=== PATIENT | male | born 1950 | race Hispanic/Latino ===

== ENCOUNTER 2016-07-11 14:33 | Inpatient (IN) | payer MEDICARE ==
[2016-07-11 14:57] VITALS: BMI 27.8
[2016-07-11] MEDS ORDERED: Vancomycin 1gm in NS 250ml 250 ML IVPB STA (15:39)
--- NOTE | 2016-07-11 15:44 | ED PDOC ---
Arrival/HPI <Rachel Brown - Last Filed: 07/11/16 17:56> - General Historian: Patient <Elias Dahl P - Last Filed: 07/11/16 20:14> - General Chief Complaint: Lower Extremity Problem/Injury Time Seen by Provider: 07/11/16 15:38 - History of Present Illness Narrative History of Present Illness (Text): 07/11/16 15:39 This 65 yo male with pmh diabetic foot, presents to this ED c/o left great toe is infected with redness on foot and lower leg x 3 weeks. Patient stated he has been soaking toe in an apple cider solution. Patient denies groin pain, fever, sob, cp, abdominal pain, urinary symptoms, mckeon, or dizziness. Dr. Dallas Crawford, PMD (DahlAyahchaim Chilel) Past Medical History - Provider Review Nursing Documentation Reviewed: Yes - Infectious Disease Hx of Infectious Diseases: None - Psychiatric Hx Substance Use: No - Surgical History Hx Cholecystectomy: Yes - Anesthesia Hx Anesthesia Reactions: No Hx Malignant Hyperthermia: No <Dahl,Ayahchaim Chilel - Last Filed: 07/11/16 20:14> Family/Social History - Physician Review Nursing Documentation Reviewed: Yes Family/Social History: No Known Family HX Smoking Status: Never Smoked Hx Alcohol Use: Yes Frequency of alcohol use: Socially Hx Substance Use: No <Dahl,Ayahchaim Chilel - Last Filed: 07/11/16 20:14> Allergies/Home Meds <Rachel Brown - Last Filed: 07/11/16 17:56> <Ayah Dahlchaim Chilel - Last Filed: 07/11/16 20:14> Allergies/Adverse Reactions: Allergies No Known Allergies Allergy (Verified 07/11/16 15:00) Home Medications: Home Meds Medication Instructions Recorded Confirmed No Known Home Med 07/11/16 07/11/16 Review of Systems - Review of Systems Constitutional: Fevers (He was found to have fever in ED). absent: Fatigue, Weight Change Eyes: Normal ENT: Normal Respiratory: Normal. absent: SOB, Cough Cardiovascular: Normal. absent: Chest Pain, Palpitations Gastrointestinal: Normal. absent: Abdominal Pain, Nausea, Vomiting Genitourinary Male: Normal. absent: Dysuria, Frequency, Hematuria Musculoskeletal: Normal Skin: Skin Lesions, Abscess, Ulcer, Cellulitis Neurological: Normal. absent: Headache, Dizziness, Focal Weakness Endocrine: Normal Hemo/Lymphatic: Normal Psychiatric: Normal <DahlAyah clearychaim P - Last Filed: 07/11/16 20:14> Physical Exam Temperature: Afebrile Blood Pressure: Normal Pulse: Regular Respiratory Rate: Normal Appearance: Positive for: Well-Appearing, Non-Toxic, Comfortable Pain Distress: None Mental Status: Positive for: Alert and Oriented X 3 - Systems Exam Head: Present: Atraumatic, Normocephalic Pupils: Present: PERRL Extroacular Muscles: Present: EOMI Conjunctiva: Present: Normal Mouth: Present: Moist Mucous Membranes Pharnyx: Present: Normal. No: ERYTHEMA, EXUDATE, TONSILS ENLARGED Neck: Present: Normal Range of Motion, Trachea Midline. No: Meningeal Signs, MIDLINE TENDERNESS, Paraspinal Tenderness Respiratory/Chest: Present: Clear to Auscultation, Good Air Exchange. No: Respiratory Distress, Accessory Muscle Use, Wheezes, Retracting, Rhonchi Cardiovascular: Present: Regular Rate and Rhythm, Normal S1, S2. No: Murmurs Abdomen: Present: Normal Bowel Sounds. No: Tenderness, Distention, Peritoneal Signs Back: Present: Normal Inspection. No: CVA Tenderness, Midline Tenderness, Paraspinal Tenderness Upper Extremity: Present: Normal Inspection, Normal ROM, NORMAL PULSES, Neurovascularly Intact, Capillary Refill < 2s. No: Cyanosis, Edema Lower Extremity: Present: NORMAL PULSES, Normal ROM, Erythema ((+) left great toe, left dorsal foot, and distal left anterior lower leg), Temperature Abnormalties, Neurovascularly Intact, Capillary Refill < 2 s (all toes except left great toe). No: Edema, CALF TENDERNESS Neurological: Present: GCS=15, CN II-XII Intact, Speech Normal Skin: Present: Warm, Dry, Normal Color, Other ((+) left dorsal 1st toe ulcer with ecchymositic changes, and surrounding erythema, trace discharge). No: Rashes Psychiatric: Present: Alert, Oriented x 3 <Elias Dahl P - Last Filed: 07/11/16 20:14> Vital Signs Temp Pulse Resp BP Pulse Ox 07/11/16 19:00 90 15 127/80 97 07/11/16 18:12 88 16 118/62 96 07/11/16 18:00 99.3 F 07/11/16 16:40 92 H 18 128/80 97 07/11/16 16:00 102.6 F H 07/11/16 14:34 100.1 F H 115 H 18 125/74 99 Medical Decision Making <Rachel Brown - Last Filed: 07/11/16 17:56> Re-evaluation Time: 19:20 Reassessment Condition: Re-examined, Improved - Lab Interpretations I have reviewed the lab results: Yes Interpretation: Abnormal lab values <Elias Dahl - Last Filed: 07/11/16 20:14> ED Course and Treatment: 07/11/16 17:56 Patient seen with JOSE Dahl. Patient with significant toe/foot infection with fever and leukocytosis. He is hemodynamically stable and does need icu care. Labs also show new onset DM. He will need to be admitted for iv antibiotics and podiatry consult. Case discussed with Dr. Crawford for admission on his service. (Rachel Brown) 07/11/16 19:20 (Elias Dahl) - Lab Interpretations Lab Results: 07/11/16 16:10 07/11/16 16:10 Lab Results 07/11/16 16:30: Urine Color Yellow, Urine Appearance Sl cloudy, Urine pH 6.0, Ur Specific [place] 1.025, Urine Protein 100 H, Urine Glucose (UA) 250 H, Urine Ketones >=80, Urine Blood Small H, Urine Nitrate Negative, Urine Bilirubin Small H, Urine Urobilinogen 0.2, Ur Leukocyte Esterase Negative, Urine RBC 0 - 2 , Urine WBC 0 - 2, Ur Epithelial Cells 0 - 2, Urine Bacteria Few 07/11/16 16:10: WBC 17.2 H, RBC 4.59, Hgb 15.4, Hct 42.9, MCV 93.5, MCH 33.6, MCHC 35.9, RDW 13.2, Plt Count 132, MPV 10.5, Gran % 87.9 H, Lymph % (Auto) 3.3 L, [place] % (Auto) 8.7 H, Eos % (Auto) 0.0 L, Baso % (Auto) 0.1, Gran # 15.10 H, Lymph # 0.6 L, [place] # 1.5 H, Eos # 0.0, Baso # 0.01, PT 11.8, INR 1.09 H, APTT 32.5 H, pO2 24 L, VBG pH 7.37, VBG pCO2 42.0, VBG HCO3 24.3, VBG Total CO2 25.6 , VBG O2 Sat (Calc) 46.0, VBG Base Excess -1.1 L, VBG Potassium 4.0, Glucose 327 H, Lactate 2.1, FiO2 21.0, Sodium 130.0 L, Potassium 4.1, Chloride 94.0 L, Carbon Dioxide 25, Anion Gap 18, BUN 24 H, Creatinine 1.1, Est GFR ( Amer ) > 60, Est GFR (Non-Af Amer) > 60, Random Glucose 314 H*, Calcium 9.1, Phosphorus 2.4 L, Magnesium 2.3 H, Total Bilirubin 1.8 H, AST 38, ALT 38, Alkaline Phosphatase 113, Total Protein 7.9, Albumin 3.9, Globulin 4.0, Albumin/ Globulin Ratio 1.0 L, Venous Blood Potassium 4.0 - RAD Interpretation Radiology Orders: 07/11/16 15:39 CHEST PORTABLE [RAD] Stat 07/11/16 15:41 FOOT LEFT 3 VIEWS ROUTINE [RAD] Stat 07/11/16 15:42 DUPLEX LOWER EXTRM VEIN LEFT [US] Stat - Medication Orders Current Medication Orders: Discontinued Medications Acetaminophen (Tylenol 325mg Tab) 650 mg PO STAT STA Stop: 07/11/16 15:45 Last Admin: 07/11/16 16:29 Dose: 650 MG Vancomycin HCl (Vancomycin 1gm) 250 mls @ 167 mls/hr IVPB STAT STA PRN Reason: Protocol Stop: 07/11/16 17:08 Last Admin: 07/11/16 16:29 Dose: 167 MLS/HR eMAR Start Stop Document 07/11/16 16:29 SF (Rec: 07/11/16 16:29 SF [id number]) Intravenous Solution Start Date 07/11/16 Start Time 16:29 End Date 07/11/16 End time 17:59 Total Infusion Time 90 Sodium Chloride (Sodium Chloride 0.9%) 1,000 mls @ 999 mls/hr IV .Q1H1M STA Stop: 07/11/16 16:47 Last Admin: 07/11/16 16:30 Dose: 999 MLS/HR eMAR Start Stop Document 07/11/16 16:30 SF (Rec: 07/11/16 16:30 SF [id number]) Intravenous Solution Start Date 07/11/16 Start Time 16:30 End Date 07/11/16 End time 17:31 Total Infusion Time 61 Piperacillin Sod/Tazobactam Sod (Zosyn 3.375 In Ns 100ml) 100 mls @ 200 mls/hr IVPB STAT STA PRN Reason: Protocol Stop: 07/11/16 18:24 Last Admin: 07/11/16 18:29 Dose: 200 MLS/HR eMAR Start Stop Document 07/11/16 18:29 SF (Rec: 07/11/16 18:29 SF [id number]) Intravenous Solution Start Date 07/11/16 Start Time 18:29 End Date 07/11/16 End time 18:59 Total Infusion Time 30 - PA / SERVICES ACCOUNT MANAGER / Resident Statement / has reviewed & agrees with the documentation as recorded. / has examined the patient and agrees with the treatment plan. <Rachel Brown - Last Filed: 07/11/16 17:56> Disposition/Present on Arrival <Rachel Brown - Last Filed: 07/11/16 17:56> - Present on Arrival Any Indicators Present on Arrival: No History of DVT/PE: No History of Uncontrolled Diabetes: No Urinary Catheter: No History of Decub. Ulcer: No History Surgical Site Infection Following: None - Disposition Have Diagnosis and Disposition been Completed?: Yes Disposition Time: 19:21 Patient Plan: Admission <Elias Dahl - Last Filed: 07/11/16 20:14> - Disposition Diagnosis: Cellulitis in diabetic foot, Infection of toe Disposition: HOSPITALIZED Patient Problems: Current Active Problems Problem Status Diagnosed Cellulitis in diabetic foot Acute Condition: STABLE
[2016-07-11] MEDS ORDERED: Sodium Chloride 0.9% 1,000 ML IV STA (15:47)
[2016-07-11 16:26] LABS: ADD MANUAL DIFF? NO
[2016-07-11 16:30] LABS: BASO # 0.01 K/mm3 (0.0-2.0); BASO % 0.1 % (0.0-3.0); GRAN % 87.9 % (50.0-68.0); HEMATOCRIT 42.9 % (42.0-52.0); LYMPH # 0.6 (1.2-3.4); LYMPH % 3.3 % (22.0-35.0); MEAN CELL VOLUME 93.5 fL (80.0-105.0); MEAN CORPUSCULAR HEMOGLOBIN 33.6 pg (25.0-35.0); MEAN CORPUSCULAR HGB CONC 35.9 g/dl (31.0-37.0); MEAN PLATELET VOLUME 10.5 fl (7.0-11.0); MONO # 1.5 (0.1-0.6); MONO % 8.7 % (1.0-6.0); PLATELET COUNT 132 10^3/uL (120.0-450.0); RED CELL DISTRIBUTION WIDTH 13.2 % (11.5-14.5); VENOUS BLOOD GAS BASE EXCESS -1.1 mmol/L (0.0-2.0); VENOUS BLOOD PH 7.37 (7.32-7.43); WHITE BLOOD COUNT 17.2 10^3/ul (4.5-11.0)
[2016-07-11 16:39] LABS: INR 1.09 (0.93-1.08); PARTIAL THROMBOPLASTIN TIME 32.5 Seconds (23.7-30.8)
[2016-07-11 16:42] LABS: ALKALINE PHOSPHATASE 113 U/L (38-133); ALT/SGPT 38 U/L (7-56); AST/SGOT 38 U/L (15-59); BILIRUBIN,TOTAL 1.8 mg/dL (0.2-1.3); BLOOD UREA NITROGEN 24 mg/dL (7-21); CALCIUM 9.1 mg/dL (8.4-10.5); CARBON DIOXIDE 25 mmol/L (21-33); CHLORIDE 91 mmol/L (98-107); GFR AFRICAN-AMERICAN > 60; MAGNESIUM 2.3 mg/dL (1.7-2.2); PHOSPHOROUS 2.4 mg/dL (2.5-4.5); POTASSIUM 4.1 mmol/L (3.6-5.0); SODIUM 130 mmol/L (132-148); TOTAL PROTEIN 7.9 g/dL (5.8-8.3)
[2016-07-11 16:52] LABS: GLUCOSE,RANDOM 314 mg/dL (70-110)
[2016-07-11 17:49] LABS: URINE BILIRUBIN SMALL (NEGATIVE); URINE BLOOD SMALL (NEGATIVE); URINE GLUCOSE (UA) 250 mg/dL (NEGATIVE); URINE KETONE >=80 mg/dL (NEGATIVE); URINE LEUKOCYTE ESTERASE NEGATIVE Leu/uL (NEGATIVE); URINE PROTEIN 100 mg/dL (<30 mg/dL); URINE UROBILINOGEN 0.2 E.U./dL (<1 E.U./dL)
[2016-07-11 17:50] LABS: URINE APPEARANCE SL CLOUDY (CLEAR); URINE COLOR YELLOW (YELLOW)
[2016-07-11] MEDS ORDERED: Piperacillin/Tazobact 3.375 gm 100 ML IVPB STA (17:55)
[2016-07-11 18:10] LABS: URINE BACTERIA FEW (NEG); URINE EPITHELIAL CELLS 0 - 2 /hpf (0-5); URINE RBC 0 - 2 /hpf (0-2); URINE WBC 0 - 2 /hpf (0-6)
[2016-07-11 20:41] LABS: VENOUS BLOOD PH 7.38 (7.32-7.43)
[2016-07-11] MEDS: Insulin Reg-LOW-Coverage SC SCH (22:57)
[2016-07-11] MEDS: Piperacillin/Tazobact 3.375 gm 100 ML IVPB SCH (23:23)
[2016-07-12 01:14] LABS: VENOUS BLOOD GAS BASE EXCESS 1.1 mmol/L (0.0-2.0); VENOUS BLOOD PH 7.44 (7.32-7.43)
[2016-07-12] MEDS: Piperacillin/Tazobact 3.375 gm 100 ML IVPB SCH ×3 (05:08→23:59)
--- NOTE | 2016-07-12 07:20 | US ---
PROCEDURE: Left lower extremity venous US HISTORY: Leg pain and swelling. Evaluate for DVT. PHYSICIAN(S): Brannon Dan MD. TECHNIQUE: Duplex sonography and color-flow Doppler with graded compression were used to evaluate the deep venous system of the left lower extremity. FINDINGS: The visualized deep venous system of the left lower extremity is sonographically normal and compressible. Normal wave forms and augmentation are seen. There is no sonographic evidence for deep venous thrombosis in the visualized segments of the left lower extremity. IMPRESSION: 1. No sonographic evidence for deep venous thrombosis in the visualized segments of the left lower extremity.
[2016-07-12] MEDS: Insulin Reg-LOW-Coverage SC SCH ×4 (08:21→22:12)
--- NOTE | 2016-07-12 09:18 | RAD ---
HISTORY: Sepsis Patient COMPARISON: No prior. FINDINGS: LUNGS: No active pulmonary disease. PLEURA: No significant pleural effusion identified, no pneumothorax apparent. CARDIOVASCULAR: Normal. OSSEOUS STRUCTURES: No significant abnormalities. VISUALIZED UPPER ABDOMEN: Normal. OTHER FINDINGS: None. IMPRESSION: No active disease.
--- NOTE | 2016-07-12 09:27 | RAD ---
PROCEDURE: Left Foot Radiographs. HISTORY: toe infection. Foot pain COMPARISON: None. FINDINGS: BONES: There is a comminuted fracture of the 1st proximal phalanx JOINTS: Normal. SOFT TISSUES: Normal. OTHER FINDINGS: None. IMPRESSION: Comminuted fracture of the 1st proximal phalanx
--- NOTE | 2016-07-12 11:35 | HP ---
ADMISSION HISTORY AND PHYSICAL HISTORY OF PRESENT ILLNESS: The patient is a 65-year-old male with a history of type 2 diabetes yen itus and diabetic neuropathy, who presents to the Emergency Department on 07/11/2016 with swelling and pain of his left foot of 2-3 weeks' duration. X-ray of the left foot shows a comminuted fracture of the first proximal phalanx. The patient, however, denies recalling any trauma to his left foot. The patient has been started empirically on IV Zosyn 3.375 grams q. 6 hours. He denies any pain. No fe richard, no chills, no discharge from the foot. PAST MEDICAL HISTORY: Includes type 2 diabetes mellitus with diabetic neuropathy, hypertension, hype rcholesterolemia. The patient has a history of noncompliance with medical followup and has not been seen in the office for the past 3-4 years. SURGICAL HISTORY: Includes status post cholecystectomy and a history of gallstone pancreatitis in past. ALLERGIES: There are no known drug allergies. CURRENT MEDICATIONS: The patient is currently on no medications. FAMILY HISTORY: Noncontributory. REVIEW OF SYSTEMS: The patient denies any chest pain, shortness of breath. The patient does have so me swelling and redness of the right leg for the past 2-3 weeks. No fever, no chills, no nausea, no vomiting. No melena or bright red blood per rectum. There is decreased sensation in a stocking dist ribution of the lower extremities bilaterally. SOCIAL HISTORY: The patient denies tobacco or alcohol use. He lives alone. He is independent with ADLs and IADLs. PHYSICAL EXAMINATION: GENERAL: The patient is a well-developed male in no acute distress. VITAL SIGNS: Blood pressure 145/77, temperature 100, pulse 87, respiratory rate 20. HEENT: Head is normocephalic, atraumatic. Pupils are equal, round, and reactive to light. Extraocu lar movements intact. NECK: Supple, with no thyromegaly, no carotid bruit, no adenopathy. LUNGS: Clear. HEART: Regular rate and rhythm with no murmurs, rubs, or gallops. ABDOMEN: Soft, nontender. Bowel sounds are normoactive. EXTREMITIES: Without cyanosis or clubbing. There is swelling of the left foot with redness to the l evel of the ankle, and a 2 cm x 3 cm necrotic ulceration of the dorsum of the left great toe with agusto e significant swelling and tenderness. NEUROLOGIC: The patient is awake and oriented x 3 without focal motor deficits. There is decreased sensation to pinprick of the lower extremities bilaterally. SKIN: Warm and dry. There is diminished dorsalis pedis, popliteal pulses 1-2/4 bilaterally. LABORATORY DATA: WBC is 17.2, hemoglobin 15.4, hematocrit 42.9. Sodium 130, potassium 4.1, chloride 91, CO2 of 25. BUN 24, creatinine 1.1. Glucose 314. Chest x-ray shows no active disease. IMPRESSION: 1. Cellulitis of the left foot with infected diabetic ulcer and necrosis of the left great toe. 2. Type 2 diabetes mellitus with diabetic neuropathy, history of noncompliance. 3. Peripheral vascular disease with possible arterial insufficiency of the lower extremities bilater ally. 4. Hypertension. 5. Hypercholesterolemia. PLAN: The patient is admitted to the medical surgical floor. He has been started on empiric antibio tics with Zosyn 3.375 g q. 6 hours. I will obtain an orthopedic consultation from Dr. Richie Rojas [facility] for possible fracture of the left great toe versus osteomyelitis. Will obtain podiatry consult from Dr. Faria for wound care. Will start the patient on regular insulin coverage with sliding sc marisel, as per protocol with low-dose insulin coverage. Consistent carbohydrate diet. Social work for discharge planning. Raulito Crawford JD, MD cc: [id number] TT: 07/12/2016 11:34:25 jn
[2016-07-12 11:48] LABS: CHOLESTEROL 119 mg/dL (130-200)
--- NOTE | 2016-07-12 11:59 | CARD ---
APPROVED REPORT EKG Measurement Heart [id number] <Conclusion> Sinus tachycardia Inferior infarct, age undetermined Anteroseptal infarct, age undetermined Abnormal ECG
--- NOTE | 2016-07-12 16:15 | CON ---
DATE: 07/12/2016 A 65-year-old male in room 573, bed 1. He is a 65-year-old male with diabetes mellitus and poor circulation to the left foot and cellulitis of his left leg and foot and left big toe with a recent fracture of his proximal phalanx of the left big toe with a large dorsal skin necrotic region of that left big toe. He explains that coming from a fall about 3 weeks ago and aggravated 2 weeks ago. The x-ray shows a definite fracture of the proximal phalanx, but there is a high suspicion for osteomyelitis with intense cellulitis of his left leg and left foot and cyanosis of the left big toe. He has no dorsalis pedis pulse. He does have Doppler of the posterior tibial, but right now it is more imperative that we get rid of this intense cellulitis with appropriate antibiotics prescribed by infectious disease doctor and number 2 is to have him evaluated by a vascular doctor like Brannon Dan and Dr. Byrnes for ID consult. He asked if he is going to have that left toe saved. I told him there is a low probability that it could be saved because of all the infection and decreased circulation. So, right now I put him in a wooden sole shoe with a clean dressing and he will be cared for by Dr. Faria also, who has much more experience with these conditions and she has availability of the wound care center. We will try to eradicate the cellulitis and bring back the circulation and then maybe he might have a slight percentage to save the toe but otherwise it looks like he is going to have to have it removed after it demarcates to see how much necrosis he probably has after a few weeks. We will follow him with you right now and plus he needs the medical management of his diabetes mellitus.patient campos has severe diabetic neuropathy that mskes it more difficult to treat the musculer skelital problems. Richie Gray DO cc: [id number] TT: 07/12/2016 16:14:58 Confirmation # [id number] Dictation # [id number] MTDDanielle
--- NOTE | 2016-07-12 19:28 | PN ---
DATE: 07/12/2016 This is a 65-year-old diabetic male seen for consultation for a purple infected left toe. The patient states he did not hit the toe. However, after questioning, he does remember having a fall at home. PAST MEDICAL HISTORY: Positive for diabetes type 2. He has neuropathy to the lower extremity. He has a history of hypertension and hypercholesterolemia. The patient states that he does not see a tong hooker for foot care. PAST SURGICAL HISTORY: Positive for cholecystectomy, pancreatitis. ALLERGIES: No known drug allergies. MEDICATIONS: He apparently was on no medications according to Dr. Crawford and he had been very noncompliant and had not been seen in the office for 3 or 4 years. REVIEW OF SYSTEMS: Negative for chest pain, shortness of breath. He states he did have some chills, but he did not have fever. He has no complaints of GI or . The patient has no cardiac or respiratory, he does have lower extremity neuropathy bilateral. He denies claudication type pain. VITAL SIGNS: Reviewed. His temperature is 100 t. max. LABORATORY DATA: Reviewed. His white blood cell count was 17.2, the H and H is 15.4 and 42.9. The platelets are 132. Granulocytes and the lymphocytes are 87.9 and 3.3 with a shift to the left. His ESR 10. His chemistries: Glucose of 314 with admission, his BUN and creatinine was 24 and 1.1. The patient had arterial Doppler studies done but the official reading is not yet on the chart. However, right did review the ABIs. The patient has no signs of any blockages. He has good pulsatile flow right through the foot and ankle and his ABIs are 1 bilateral. He has a negative ultrasound for DVT. His foot x-ray was interestingly; his hallux is fractured and dislocated and this is probably the source of this infection. Clinically, his foot is with a +2 edema, cellulitis on the foot all the way down to the mid foot area, red, hot and swollen. He had a hematoma on the dorsal aspect, the hallux itself is devascularized from the infection. There is no capillary refill and it is cyanotic. Using a sterile suture removal kit, we opened up that and removed that eschar on the dorsum of the hallux to see if we could explore the wound a little at bedside and release some of the purulence. However, there was not that much purulence released. There is no bone or tendon exposed. There is, however, pain on palpation in the first interspace. 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 PLAN OF TREATMENT: The patient needs an amputation of the hallux as well as an I and D, even if that hallux fracture is secondary to a fall 2 weeks ago. With the infection it is now considered infected osteomyelitis. This was explained to patient and he has agreed to the procedure. I am not here tomorrow, Dr. Marques was here. I am going on a conference Tuesday, so I am going to ask Dr. Marques to follow up in and bring this patient to do the OR, do the amputation and I and D as necessary. Jayla Faria DPM cc: [id number] TT: 07/12/2016 19:27:34 Confirmation # [id number] Dictation # [id number] jn MTDD
--- NOTE | 2016-07-12 22:02 | US ---
PROCEDURE: Lower extremity CONSTANTINE exam HISTORY: Peripheral vascular disease with pain and ulceration. Diabetes PHYSICIAN(S): Brannon Dan MD. FINDINGS: The resting CONSTANTINE's are normal: right, 1.14and left, 1.13. The brachial systolic pressures are symmetric. The high thigh pressures and waveforms are relatively normal. The calf PVR waveforms augment normally. No significant gradients are noted across the thighs. The ankle and metatarsal waveforms are relatively normal and symmetric. No significant pressure gradients are noted across the lower legs. IMPRESSION: 1. Normal CONSTANTINE and PVR examination at rest.
[2016-07-13] MEDS: Piperacillin/Tazobact 3.375 gm 100 ML IVPB SCH ×2 (06:05→12:00)
[2016-07-13 07:57] LABS: HEMATOCRIT 38.7 % (42.0-52.0); MEAN CELL VOLUME 92.4 fL (80.0-105.0); MEAN CORPUSCULAR HEMOGLOBIN 32.7 pg (25.0-35.0); MEAN CORPUSCULAR HGB CONC 35.4 g/dl (31.0-37.0); MEAN PLATELET VOLUME 10.4 fl (7.0-11.0); RED CELL DISTRIBUTION WIDTH 12.9 % (11.5-14.5); WHITE BLOOD COUNT 16.7 10^3/ul (4.5-11.0)
[2016-07-13 08:07] LABS: ALB/GLOB RATIO 0.9 (1.1-1.8); ALKALINE PHOSPHATASE 132 U/L (38-133); ALT/SGPT 65 U/L (7-56); AST/SGOT 55 U/L (15-59); BILIRUBIN,TOTAL 1.2 mg/dL (0.2-1.3); BLOOD UREA NITROGEN 17 mg/dL (7-21); CARBON DIOXIDE 25 mmol/L (21-33); CHLORIDE 98 mmol/L (95-110); GFR AFRICAN-AMERICAN > 60; GLUCOSE,RANDOM 244 mg/dL (70-110); POTASSIUM 3.6 mmol/L (3.6-5.0); SODIUM 134 mmol/L (132-148); TOTAL PROTEIN 6.4 g/dL (5.8-8.3)
[2016-07-13] MEDS: Insulin Reg-LOW-Coverage SC SCH ×4 (08:54→21:38)
--- NOTE | 2016-07-13 13:30 | CP.PCM.PN ---
<Neeta Shaffer - Last Filed: 07/13/16 13:46> Subjective - Date & Time of Evaluation Date of Evaluation: 07/13/16 Time of Evaluation: 11:00 - Subjective Subjective: 65 year old male patient with PMHx of DM and diabetic neuropathy was seen at bedside this morning with attending Dr. Marques for scheduled surgery of Left hallux amputation. Patient presents with infected Left hallux and abscess. Patient states that he is neuropathic and does not exactly remember how he injured his foot initially. Patient denies of any N/V/F/C or SOB today. Patient was explained of his current condition with infection, abscess and gangrenous changes to Left hallux. Patient understands the surgical plan and agrees with the plan of Left hallux amputation. Patient confirms NPO status since last night. Objective - Vital Signs/Intake and Output Vital Signs (last 24 hours): Temp Pulse Resp BP Pulse Ox 99.7 F H 82 20 150/81 95 07/13/16 07:30 07/13/16 07:30 07/13/16 07:30 07/13/16 07:30 07/13/16 07:30 Intake and Output: 07/13/16 07/13/16 06:59 18:59 Intake Total 840 300 Output Total 1775 2800 Balance -935 -2500 - Medications Medications: Current Medications Acetaminophen (Tylenol 325mg Tab) 650 mg PO Q6H PRN PRN Reason: Pain, moderate (4-7) Last Admin: 07/12/16 13:16 Dose: 650 mg Daptomycin 540 mg/ Sodium (Chloride) 100 mls @ 200 mls/hr IV Q24H DENIS PRN Reason: Protocol Stop: 07/19/16 16:46 Last Admin: 07/12/16 17:45 Dose: 200 mls/hr Piperacillin Sod/Tazobactam Sod (Zosyn 3.375 In Ns 100ml) 100 mls @ 200 mls/hr IVPB Q6 DENIS PRN Reason: Protocol Stop: 07/19/16 18:01 Last Admin: 07/13/16 06:05 Dose: 200 mls/hr Insulin Human Regular (Humulin R Low) 0 units SC ACHS DENIS PRN Reason: Protocol Last Admin: 07/13/16 08:54 Dose: Not Given - Labs Labs: 07/13/16 07:00 07/13/16 07:00 PT 11.8 Seconds (9.9-11.8) 07/11/16 16:10 INR 1.09 (0.93-1.08) H 07/11/16 16:10 APTT 32.5 Seconds (23.7-30.8) H 07/11/16 16:10 - Constitutional Appears: Well, Non-toxic, No Acute Distress - Extremities Exam Additional comments: Left lower extremity exam DERM: Open wound noted to dorsal aspect of Left hallux measuring 3cm x 3cm x 0.4cm with necrotic base. Purulent discharge was noted from the Left hallux wound. Severe erythema is noted to Left hallux extending proximally up to mid- foot, consistent with acute infection. Moderate mal-odor is noted from the wound. 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 Passive ankle ROM is within normal range , decreased ROM to Left hallux NEURO: Protective sensation diminished - Neurological Exam Neurological Exam: Alert, Awake, Oriented x3 - Psychiatric Exam Psychiatric exam: Normal Mood - Skin Skin Exam: Normal Color, Warm Assessment and Plan - Assessment and Plan (Free Text) Assessment: 65 year old male patient presenting with Left hallux infection and abscess Plan: Patient was seen, evaluated with Dr. Marques labs and vitals were reviewed NPO status confirmed Left hallux amputation surgery booked for 3:[address] Marques Written consent is obtained and is in the chart No guarantees were made nor implied Podiatry will continue to follow <Tito Marques - Last Filed: 07/13/16 15:27> Objective - Vital Signs/Intake and Output Vital Signs (last 24 hours): Temp Pulse Resp BP Pulse Ox 99.7 F H 82 20 150/81 95 07/13/16 07:30 07/13/16 07:30 07/13/16 07:30 07/13/16 07:30 07/13/16 07:30 Intake and Output: 07/13/16 07/13/16 06:59 18:59 Intake Total 840 300 Output Total 1775 3300 Balance -935 -3000 - Medications Medications: Current Medications Acetaminophen (Tylenol 325mg Tab) 650 mg PO Q6H PRN PRN Reason: Pain, moderate (4-7) Last Admin: 07/12/16 13:16 Dose: 650 mg Daptomycin 540 mg/ Sodium (Chloride) 100 mls @ 200 mls/hr IV Q24H DENIS PRN Reason: Protocol Stop: 07/19/16 16:46 Last Admin: 07/12/16 17:45 Dose: 200 mls/hr Piperacillin Sod/Tazobactam Sod (Zosyn 3.375 In Ns 100ml) 100 mls @ 200 mls/hr IVPB Q6 DENIS PRN Reason: Protocol Stop: 07/19/16 18:01 Last Admin: 07/13/16 06:05 Dose: 200 mls/hr Insulin Human Regular (Humulin R Low) 0 units SC ACHS DENIS PRN Reason: Protocol Last Admin: 07/13/16 08:54 Dose: Not Given - Labs Labs: 07/13/16 07:00 07/13/16 07:00 PT 11.8 Seconds (9.9-11.8) 07/11/16 16:10 INR 1.09 (0.93-1.08) H 07/11/16 16:10 APTT 32.5 Seconds (23.7-30.8) H 07/11/16 16:10 Attending/Attestation - Attestation I have personally seen and examined this patient.: Yes I have fully participated in the care of the patient.: Yes I have reviewed all pertinent clinical information, including history, physical exam and plan: Yes
--- NOTE | 2016-07-13 15:12 | PN ---
DATE: 07/13/2016 SUBJECTIVE: The patient is lying in bed in no acute distress. OBJECTIVE: VITAL SIGNS: Blood pressure 150/81, temperature 99.7, pulse 82, respiratory rate 20. LUNGS: Clear. HEART: Regular rate and rhythm. ABDOMEN: Soft, nontender, bowel sounds are normoactive. EXTREMITIES: Without cyanosis or clubbing. Wound dressing of the left foot is intact with some decr eased swelling and erythema. LABORATORY DATA: WBC 16.7, hemoglobin 13.7, hematocrit 38.7, sodium 134, potassium 3.6, chloride 98, CO2 25, BUN 17, creatinine 0.8, glucose 244. IMPRESSION: 1. Probable osteomyelitis of the left great toe with cellulitis of the left foot and gangrene of the left great toe. 2. Type 2 diabetes mellitus with diabetic neuropathy. 3. Hypertension. 4. Hypercholesterolemia. PLAN: Continue IV antibiotics with Zosyn 3.375 grams q. 6 hours. Orthopedic consultation by Dr. Adelso delvalle and podiatry consult Dr. Faria are appreciated. The patient will probably require amputa tion of the left great toe. Continue regular insulin coverage, consistent carbohydrate diet and soci al work for discharge planning. Raulito Crawford JD, MD cc: [id number] TT: 07/13/2016 15:11:32 Confirmation # [id number] Dictation # [id number]
[2016-07-13] MEDS ORDERED: Lidocaine 1% Inj (20ml) ONE (15:19)
[2016-07-13] MEDS ORDERED: Bupivacaine 0.5% Inj(30mL) ONE (15:19)
[2016-07-13] MEDS ORDERED: Propofol 10 mg/ml Inj (20 ML) ONE (16:12)
[2016-07-13] MEDS ORDERED: Midazolam 2 MG/2 ML VIAL ONE (16:13)
[2016-07-13] MEDS ORDERED: HYDROmorphone 0.5 mg/0.5 ml ISec IVP PRN (17:12)
[2016-07-13] MEDS ORDERED: Lactated Ringer's 1,000 ML IV SCH (17:15)
--- NOTE | 2016-07-13 17:45 | CP.PCM.CON ---
History of Present Illness - History of Present Illness History of Present Illness: 65 year old male with PMH of DM, S/P cholecystectomy was brought in to [facility] because of worsening swelling and erythema of the left foot especially the hallux. The patient also developed fever and has been measured during this admission. He denies headache or dizziness, no nausea or vomiting, no chest pain, no abdominal pain, no SOB, no cough or rhinorrhea, no diarrhea, no dysuria, no blurring of vision, no dysphagia. Xray of the foot shows fracture with suspicion for osteomyelitis. The patient also had blood cx and it is positive. Infectious Diseases consult is requested to further evaluate and manage. Review of Systems - Review of Systems All systems: reviewed and no additional remarkable complaints except (as per HPI ) Past Patient History - Infectious Disease Hx of Infectious Diseases: None - Past Social History Smoking Status: Never Smoked Alcohol: None Drugs: Denies Home Situation {Lives}: With Family - CARDIAC Hx Cardiac Disorders: No - PULMONARY Hx Respiratory Disorders: No - NEUROLOGICAL Hx Neurological Disorder: No - HEENT Hx HEENT Problems: No - RENAL Hx Chronic Kidney Disease: No - ENDOCRINE/METABOLIC Hx Endocrine Disorders: Yes Other/Comment: uncontrolled DM - HEMATOLOGICAL/ONCOLOGICAL Hx Blood Disorders: No - INTEGUMENTARY Hx Dermatological Problems: No - MUSCULOSKELETAL/RHEUMATOLOGICAL Hx Musculoskeletal Disorders: No Hx Falls: No - GASTROINTESTINAL Hx Gastrointestinal Disorders: Yes Other/Comment: cholecystectomy - GENITOURINARY/GYNECOLOGICAL Hx Genitourinary Disorders: No - PSYCHIATRIC Hx Psychophysiologic Disorder: No - SURGICAL HISTORY Hx Surgeries: Yes Hx Cholecystectomy: Yes - ANESTHESIA Hx Anesthesia Reactions: No Hx Malignant Hyperthermia: No Meds Allergies/Adverse Reactions: Allergies Allergy/AdvReac Type Severity Reaction Status Date / Time No Known Allergies Allergy Verified 07/11/16 15:00 - Medications Medications: Current Medications Acetaminophen (Tylenol 325mg Tab) 650 mg PO Q6H PRN PRN Reason: Pain, moderate (4-7) Last Admin: 07/12/16 13:16 Dose: 650 mg Daptomycin 540 mg/ Sodium (Chloride) 100 mls @ 200 mls/hr IV Q24H DENIS PRN Reason: Protocol Stop: 07/19/16 16:46 Insulin Human Regular (Humulin R Low) 0 units SC ACHS DENIS PRN Reason: Protocol Last Admin: 07/12/16 13:15 Dose: 2 units Physical Exam - Constitutional Appears: Non-toxic, No Acute Distress - Head Exam Head Exam: NORMAL INSPECTION - ENT Exam ENT Exam: Mucous Membranes Moist - Neck Exam Neck exam: Negative for: Lymphadenopathy, Meningismus - Respiratory Exam Respiratory Exam: Decreased Breath Sounds - Cardiovascular Exam Cardiovascular Exam: +S1, +S2 - GI/Abdominal Exam GI & Abdominal Exam: Soft. absent: Tenderness - Extremities Exam Additional comments: left foot with dry dressings in place Results - Vital Signs Recent Vital Signs: Last Vital Signs Temp 98.5 F 07/12/16 16:00 Pulse 86 07/12/16 16:00 Resp 18 07/12/16 16:00 BP 141/78 07/12/16 16:00 Pulse Ox 95 07/12/16 16:00 - Labs Result Diagrams: 07/13/16 07:00 07/13/16 07:00 Labs: Laboratory Results - last 24 hr 07/11/16 07/11/16 07/12/16 20:15 22:29 00:45 ESR pO2 24 L 38 VBG pH 7.38 7.44 H VBG pCO2 45.0 37.0 L VBG HCO3 26.6 25.1 VBG Total CO2 28.0 26.2 VBG O2 Sat (Calc) 47.3 80.5 H VBG Base Excess 1.0 1.1 VBG Potassium 4.5 3.8 Sodium 132.0 133.0 Chloride 99.0 101.0 Glucose 372 H 323 H Lactate 2.2 H 1.4 FiO2 21.0 21.0 POC Glucose (mg/dL) 321 H Hemoglobin A1c Triglycerides Cholesterol LDL Cholesterol Direct HDL Cholesterol TSH 3rd Generation Venous Blood Potassium 4.5 3.8 07/12/16 07/12/16 07/12/16 07:09 11:20 11:21 ESR 10 pO2 VBG pH VBG pCO2 VBG HCO3 VBG Total CO2 VBG O2 Sat (Calc) VBG Base Excess VBG Potassium Sodium Chloride Glucose Lactate FiO2 POC Glucose (mg/dL) 246 H 216 H Hemoglobin A1c 11.5 H Triglycerides Cholesterol LDL Cholesterol Direct HDL Cholesterol TSH 3rd Generation 2.1 Venous Blood Potassium 07/12/16 07/12/16 11:30 16:01 ESR pO2 VBG pH VBG pCO2 VBG HCO3 VBG Total CO2 VBG O2 Sat (Calc) VBG Base Excess VBG Potassium Sodium Chloride Glucose Lactate FiO2 POC Glucose (mg/dL) 287 H Hemoglobin A1c Triglycerides 156 Cholesterol 119 L LDL Cholesterol Direct 67 HDL Cholesterol 20 L TSH 3rd Generation Venous Blood Potassium Assessment & Plan - Assessment and Plan (Free Text) Plan: Assessment Sepsis secondary to gram positive cocci bacteremia, consider secondary to left foot skin and skin structure infection (especially the hallux), suspect osteomyelitis of the left hallux DM S/P cholecystectomy Plan Started patient on Daptomycin and Zosyn pending identification and sensivities of the gram positive cocci in the blood and wound; follow up repeat blood cx; follow up plan of Podiatry for the left hallux Will monitor clinically
--- NOTE | 2016-07-13 18:35 | RAD ---
PROCEDURE: Left Foot Radiographs. HISTORY: s/p left hallux amp COMPARISON: Preoperative study 07/11/2016 FINDINGS: BONES: Expected postoperative findings following resection of the 1st digit. JOINTS: No significant interval change compared to the prior examination(s). SOFT TISSUES: Expected soft tissue swelling and air within the soft tissues surgical bed OTHER FINDINGS: None. IMPRESSION: Satisfactory postoperative status.
[2016-07-13] MEDS ORDERED: Piperacillin/Tazobact 3.375 gm 100 ML IVPB STA (19:34)
--- NOTE | 2016-07-13 19:40 | OP ---
PROCEDURE DATE: 07/13/2016 INDICATIONS: A 65-year-old man with a history of insulin-dependent diabetes with profound peripheral neuropathy who presented to the Emergency Room approximately 2 days ago with a chief complaint of bl ackened left great toe. The patient is unable to ascertain exactly what happened and how he injured his toe due to his profound neuropathy. Upon examination, the toe was deemed to be nonviable and the entire medial forefoot presented with edema and erythema and a foul smelling discharge at the proxim al interphalangeal joint, which tracked to the first interspace. Appropriate vascular and radiograph ic studies were performed. The studies deemed adequate perfusion to allow healing to occur and after discussion, it was determined that amputation of the left hallux and incision and drainage of his se la abscess on his left foot was deemed appropriate. PROCEDURE IN DETAIL: The patient was brought into the operating room in his hospital bed and transfe rred from the hospital bed to the operating room table in the supine position. After proper IV sedat ion, approximately 16 mL of a 1:1 ratio of 2% lidocaine plain and 0.5% Marcaine plain was infiltrated in an ankle block fashion at the left ankle, the foot was then scrubbed, prepped and draped in the u sual aseptic fashion. Attention was directed to the left hallux where there was noted to be a gangre nous toe with a foul smelling ulceration that was actively emanating purulence. In fact, the entire medial forefoot, especially at the first interspace, was erythematous and edematous with purulent dis charge present. Utilizing a #15 surgical blade, a racquet type incision was made encompassing the ga ngrenous ulceration and extended proximally into the first interspace. It was noted that upon incisi on, purulent discharge immediately drained from the wound. It was noted at this time that the purule nce was foul smelling. Attention was then directed along the circumferential incision site at the mckeon llux where the incision was deepened to the bone and the distal aspect of the hallux was removed in t noemí. It was noted at this time that copious purulence was emanating from the wound. Next, utilizing a #15 blade the proximal phalanx was freed of its structures and removed from the operative field. The incision was then carried proximally into the first interspace where foul smelling purulence cont inued to flow. At this time, it was noted that the underlying tissues presented with necrotic gangre nous and fibrotic appearance. Using blunt scissors and a mosquito scissor, as much necrotic tissue w as excised as possible. Next, utilizing a blunt hemostat and blunt Gusman scissors, tissue planes were opened medially, laterally, plantarly and dorsally at the first interspace where purulence continued to flow. At this time, approximately 2000 mL of bacitracin infused normal saline was used with a pu lse lavage to flush the wound. After flushing was performed, there was noted to be a minimal amount of necrotic tissue, which was then excised using #15 blade and blunt Gusman scissors. There was noted to be no purulent drainage at this time and there was noted to be red active healthy bleeding. Pulse lavage was once again introduced into the incision site and the area was flushed for an additional 5 00 mL. At this time, a culture and sensitivity was taken and submitted. The wound was then packed w ith sterile iodoform packing and covered with Acticoat and dry sterile dressing. The plan is for the patient to be brought back into the operating room on or Tuesday when his white blood cell c ount falls to within normal limits as it is approximately 16.7 today and close the wound. The patien t was transferred from the operating room to the recovery room with all vital signs stable. X-rays w ere ordered and after a period of postoperative monitoring, the patient will be brought back to his r oom and resume all preoperative medications. The patient will be seen in a.m. Tito Marques DPM cc: [id number] TT: 07/13/2016 19:40:30 dhruv
[2016-07-14] MEDS: Piperacillin/Tazobact 3.375 gm 100 ML IVPB SCH ×4 (00:06→18:04)
[2016-07-14] MEDS ORDERED: oxyCODONE 15 mg Immediate Release Tab PO PRN (01:43)
[2016-07-14] MEDS: Insulin Reg-LOW-Coverage SC SCH (08:45)
--- NOTE | 2016-07-14 09:35 | CP.PCM.PN ---
Subjective - Date & Time of Evaluation Date of Evaluation: 07/14/16 Time of Evaluation: 08:50 - Subjective Subjective: 65 year old male patient 1 day s/p Left hallux amputation was seen at bedside this morning with attending Dr. Faria. Patient was resting comfortably in bed without any acute overnight distress. Dressing to Left foot remains clean dry and intact. Patient denies of any pain to the surgical site today. The patient was reminded that he will need additional surgery for more abscess drainage or primary closure. Patient denies of any N/V/F/C or SOB today. Objective - Vital Signs/Intake and Output Vital Signs (last 24 hours): Temp Pulse Resp BP Pulse Ox 99 F 75 18 147/79 97 07/14/16 08:40 07/14/16 08:40 07/14/16 08:40 07/14/16 08:40 07/14/16 08:40 Intake and Output: 07/14/16 07/14/16 06:59 18:59 Intake Total 1460 Output Total 2300 Balance -840 - Medications Medications: Current Medications Acetaminophen (Tylenol 325mg Tab) 650 mg PO Q6H PRN PRN Reason: Pain, moderate (4-7) Last Admin: 07/12/16 13:16 Dose: 650 mg Piperacillin Sod/Tazobactam Sod (Zosyn 3.375 In Ns 100ml) 100 mls @ 200 mls/hr IVPB Q6 DENIS PRN Reason: Protocol Stop: 07/19/16 00:01 Last Admin: 07/14/16 06:07 Dose: 200 mls/hr Daptomycin 540 mg/ Sodium (Chloride) 100 mls @ 200 mls/hr IV Q24H DENIS PRN Reason: Protocol Stop: 07/19/16 19:46 Insulin Human Regular (Humulin R Low) 0 units SC ACHS DENIS PRN Reason: Protocol Last Admin: 07/13/16 21:38 Dose: Not Given Oxycodone HCl (Oxycodone Immediate Release Tab) 15 mg PO Q6H PRN PRN Reason: Pain, severe (8-10) - Labs Labs: 07/13/16 07:00 07/13/16 07:00 PT 11.8 Seconds (9.9-11.8) 07/11/16 16:10 INR 1.09 (0.93-1.08) H 07/11/16 16:10 APTT 32.5 Seconds (23.7-30.8) H 07/11/16 16:10 - Constitutional Appears: Well, Non-toxic, No Acute Distress - Extremities Exam Additional comments: Left lower extremity exam DERM: Open surgical site noted to Left hallux at the site of amputation with 1/ 2 inch iodoform packing packed inside. Skin edges of surgical site appeared viable with no macerations. No purulent drainage is noted from the wound site. Mild erythema was noted to the dorsum of the left foot up to the level of ankle. 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 Passive ankle ROM is within normal range , decreased ROM to Left hallux NEURO: Protective sensation diminished - Neurological Exam Neurological Exam: Alert, Awake, Oriented x3 - Psychiatric Exam Psychiatric exam: Normal Affect, Normal Mood - Skin Skin Exam: Normal Color, Warm Assessment and Plan - Assessment and Plan (Free Text) Assessment: 65 year old male patient 1 day s/p Left hallux amputation with delayed closure Plan: Patient was seen, evaluated and treated with all questions and concerns addressed labs and vitals reviewed rounded with attending Dr. Faria Packing was removed from the amputation site, the surgical site was cleansed with copious amount of sterile saline Surgical site was re-packed with 1/2 inch iodoform packing in sterile manner with sterile equipments Patient to go to OR for surgery again tomorrow for further surgery. NPO after 11:00 PM [facility] Podiatry will continue to follow in-house
[2016-07-14 10:53] LABS: HEMATOCRIT 39.6 % (42.0-52.0); MEAN CELL VOLUME 93.4 fL (80.0-105.0); MEAN CORPUSCULAR HGB CONC 35.4 g/dl (31.0-37.0); MEAN PLATELET VOLUME 10.4 fl (7.0-11.0); RED CELL DISTRIBUTION WIDTH 13.2 % (11.5-14.5); WHITE BLOOD COUNT 13.8 10^3/ul (4.5-11.0)
[2016-07-14 10:58] LABS: BLOOD UREA NITROGEN 15 mg/dL (7-21); CALCIUM 7.9 mg/dL (8.4-10.5); CARBON DIOXIDE 27 mmol/L (21-33); CHLORIDE 96 mmol/L (98-107); GFR AFRICAN-AMERICAN > 60; POTASSIUM 3.7 mmol/L (3.6-5.0); SODIUM 132 mmol/L (132-148)
[2016-07-14 11:06] LABS: GLUCOSE,RANDOM 327 mg/dL (70-110)
--- NOTE | 2016-07-14 13:35 | PN ---
DATE: 07/14/2016 SUBJECTIVE: The patient is lying in bed in no acute distress. OBJECTIVE: VITAL SIGNS: Blood pressure 147/79, temp 99, pulse 75, respiratory rate 18. LUNGS: Clear. HEART: Regular rate and rhythm. ABDOMEN: Soft, nontender, bowel sounds are normoactive. EXTREMITIES: Wound dressing on the left foot is intact. NEUROLOGIC: The patient is awake and oriented x 3 without focal sensory or motor deficits. SKIN: Warm and dry. LABORATORY DATA: WBC is 13.8, hemoglobin 14.0, hematocrit 39.6. Sodium 132, potassium 3.7, chloride 96, CO2 of 27, BUN 15, creatinine 0.8, glucose 316. IMPRESSION: 1. Gangrene of the left great toe, status post amputation. 2. Type 2 diabetes mellitus with diabetic neuropathy. 3. Hypertension. 4. Hypercholesterolemia. PLAN: Continue IV antibiotics. Orthopedic and podiatry followup with Dr. Gray and Dr. Gomez in. Wound care, for possible OR later this week. Raulito Crawford JD, MD cc: [phone] TT: 07/14/2016 13:34:40 Confirmation # [id number] Dictation # [id number]
--- NOTE | 2016-07-14 18:12 | CP.PCM.PN ---
Subjective - Date & Time of Evaluation Date of Evaluation: 07/14/16 Time of Evaluation: 10:55 - Subjective Subjective: Patient had surgery yesterday. Feeling better, no fevers overnight, no nausea, no diarrhea, less pain in the foot. Objective - Vital Signs/Intake and Output Vital Signs (last 24 hours): Temp Pulse Resp BP Pulse Ox 98.1 F 73 20 146/81 92 L 07/14/16 16:00 07/14/16 16:00 07/14/16 16:00 07/14/16 16:00 07/14/16 16:00 Intake and Output: 07/14/16 07/14/16 06:59 18:59 Intake Total 1460 Output Total 2300 Balance -840 - Medications Medications: Current Medications Acetaminophen (Tylenol 325mg Tab) 650 mg PO Q6H PRN PRN Reason: Pain, moderate (4-7) Last Admin: 07/12/16 13:16 Dose: 650 mg Docusate Sodium (Colace) 100 mg PO TID [facility] Last Admin: 07/14/16 18:03 Dose: 100 mg Piperacillin Sod/Tazobactam Sod (Zosyn 3.375 In Ns 100ml) 100 mls @ 200 mls/hr IVPB Q6 DENIS PRN Reason: Protocol Stop: 07/19/16 00:01 Last Admin: 07/14/16 18:04 Dose: 200 mls/hr Daptomycin 540 mg/ Sodium (Chloride) 100 mls @ 200 mls/hr IV Q24H DENIS PRN Reason: Protocol Stop: 07/19/16 19:46 Insulin Human Regular (Humulin R Med) 0 units SC ACHS [facility] PRN Reason: Protocol Metformin HCl (Glucophage) 500 mg PO BID [facility] Last Admin: 07/14/16 18:03 Dose: 500 mg Oxycodone HCl (Oxycodone Immediate Release Tab) 15 mg PO Q6H PRN PRN Reason: Pain, severe (8-10) - Labs Labs: 07/14/16 10:20 07/14/16 10:20 PT 11.8 Seconds (9.9-11.8) 07/11/16 16:10 INR 1.09 (0.93-1.08) H 07/11/16 16:10 APTT 32.5 Seconds (23.7-30.8) H 07/11/16 16:10 - Constitutional Appears: Non-toxic, No Acute Distress - Head Exam Head Exam: NORMAL INSPECTION - ENT Exam ENT Exam: Mucous Membranes Moist - Neck Exam Neck Exam: absent: Lymphadenopathy, Meningismus - Respiratory Exam Respiratory Exam: Decreased Breath Sounds - Cardiovascular Exam Cardiovascular Exam: +S1, +S2 - GI/Abdominal Exam GI & Abdominal Exam: Soft. absent: Tenderness Assessment and Plan - Assessment and Plan (Free Text) Plan: Assessment Sepsis secondary to gram positive cocci bacteremia, consider secondary to left foot skin and skin structure infection (especially the hallux), suspect osteomyelitis of the left hallux S/P surgery POD #1 DM S/P cholecystectomy Plan continue Daptomycin and Zosyn pending identification and sensivities of the gram positive cocci in the blood (wound showing group B strep); follow up repeat blood cx Will continue to monitor clinically
[2016-07-14] MEDS: Insulin Reg-MEDIUM-Coverage SC SCH ×2 (18:25→21:42)
[2016-07-15] MEDS: Piperacillin/Tazobact 3.375 gm 100 ML IVPB SCH ×4 (00:40→17:46)
[2016-07-15 07:51] LABS: ADD MANUAL DIFF? NO
[2016-07-15 07:58] LABS: BASO # 0.07 K/mm3 (0.0-2.0); BASO % 0.8 % (0.0-3.0); EOS # 0.4 (0.0-0.7); EOS % 3.9 % (1.5-5.0); GRAN # 6.16 (1.4-6.5); GRAN % 68.8 % (50.0-68.0); HEMATOCRIT 39.8 % (42.0-52.0); LYMPH # 1.4 (1.2-3.4); LYMPH % 15.8 % (22.0-35.0); MEAN CELL VOLUME 94.1 fL (80.0-105.0); MEAN CORPUSCULAR HEMOGLOBIN 32.9 pg (25.0-35.0); MEAN CORPUSCULAR HGB CONC 34.9 g/dl (31.0-37.0); MEAN PLATELET VOLUME 9.7 fl (7.0-11.0); MONO % 10.7 % (1.0-6.0); PLATELET COUNT 241 10^3/uL (120.0-450.0); RED CELL DISTRIBUTION WIDTH 13.2 % (11.5-14.5)
[2016-07-15] MEDS: Insulin Reg-MEDIUM-Coverage SC SCH ×3 (08:00→16:50)
[2016-07-15 08:15] LABS: ALB/GLOB RATIO 0.8 (1.1-1.8); ALKALINE PHOSPHATASE 152 U/L (38-133); ALT/SGPT 92 U/L (7-56); AST/SGOT 63 U/L (15-59); BILIRUBIN,TOTAL 0.9 mg/dL (0.2-1.3); BLOOD UREA NITROGEN 13 mg/dL (7-21); CALCIUM 8.4 mg/dL (8.4-10.5); CARBON DIOXIDE 28 mmol/L (21-33); CHLORIDE 101 mmol/L (95-110); GFR AFRICAN-AMERICAN > 60; GLUCOSE,RANDOM 251 mg/dL (70-110); MAGNESIUM 2.3 mg/dL (1.7-2.2); POTASSIUM 4.6 mmol/L (3.6-5.0); SODIUM 137 mmol/L (132-148); TOTAL PROTEIN 6.6 g/dL (5.8-8.3)
[2016-07-15] MEDS ORDERED: Bupivacaine 0.5% Inj(30mL) ONE (09:00)
[2016-07-15] MEDS ORDERED: Lidocaine 1% Inj (20ml) ONE (09:00)
[2016-07-15] MEDS ORDERED: Propofol 10 mg/ml Inj (20 ML) ONE ×2 (09:10→09:42)
[2016-07-15] MEDS ORDERED: Midazolam 2 MG/2 ML VIAL ONE (09:11)
[2016-07-15] MEDS ORDERED: HYDROmorphone 0.5 mg/0.5 ml ISec IVP PRN (10:29)
[2016-07-15] MEDS ORDERED: Lactated Ringer's 1,000 ML IV SCH (10:30)
--- NOTE | 2016-07-15 10:31 | PCM.SURG1 ---
<Neeta Shaffer - Last Filed: 07/15/16 10:28> Surgeon's Initial Post Op Note - Surgeon's Notes Surgeon: Dr. Marques Vice Chancellor: Dt. Rory Shaffer Type of Anesthesia: IV Sedation, Local Anesthesia Administered By: Dr. Scott Pre-Operative Diagnosis: Left foot abscess and infection, and osteomyelitis to 1st matatarsal head Operative Findings: materials: Sterile drain, 3-0 Vicryl, 4-0 Nylon Post-Operative Diagnosis: same Operation Performed: Left foot Incision and drainage with resection of the Left 1st metatarsal head Specimen/Specimens Removed: Left 1st metatarsal head, soft tissue around the 1st metatarsal head Estimated Blood Loss: EBL {In ML}: 15 Blood Products Given: N/A Drains Used: Tangent Post-Op Condition: Good Date of Surgery/Procedure: 07/15/16 Time of Surgery/Procedure: 09:10 <Tito Marques - Last Filed: 07/17/16 08:14> Attending/Attestation - Attestation I have personally seen and examined this patient.: Yes I have fully participated in the care of the patient.: Yes I have reviewed all pertinent clinical information: Yes
[2016-07-15] MEDS ORDERED: Oxycodone/Acetaminophen 5/325 mg Tab PO PRN ×2 (10:33)
--- NOTE | 2016-07-15 11:29 | RAD ---
PROCEDURE: Left Foot Radiographs. HISTORY: Left foot surgery COMPARISON: 07/13/2016 FINDINGS: BONES: There has been additional resection of the distal aspect, 1st metatarsal. Number the remaining bones appear intact. No fractures. JOINTS: Flexion deformity of the 2nd through 5th digits. No articular erosions. SOFT TISSUES: Normal. OTHER FINDINGS: None. IMPRESSION: Status post resection of 1st metatarsal head.
--- NOTE | 2016-07-15 16:14 | PN ---
DATE: 07/15/2016 SUBJECTIVE: The patient is lying in bed in no acute distress. OBJECTIVE: VITAL SIGNS: Blood pressure 153/76, temperature 98, pulse 69, respiratory rate 14. LUNGS: Clear. HEART: Regular rate and rhythm. ABDOMEN: Soft, nontender, bowel sounds are normoactive. EXTREMITIES: Wound dressing of the left foot is intact. NEUROLOGIC: The patient is awake and oriented x 3 without focal sensory or motor deficits. SKIN: Warm and dry. LABORATORY DATA: WBC is 9.0, hemoglobin 13.9, hematocrit 39.8. Sodium 137, potassium 4.6, chloride 101, CO2 28, BUN 13, creatinine 0.8, glucose 251. IMPRESSION: 1. Gangrene of the left great toe, status post amputation. 2. Type 2 diabetes mellitus with diabetic neuropathy. 3. Hypertension. 4. Hypercholesterolemia. PLAN: Continue IV antibiotics and wound care. Orthopedic and podiatry followup. Social work for [facility] planning. Raulito Crawford JD, MD cc: [id number] TT: 07/15/2016 16:14:02 Confirmation # [id number] Dictation # [id number] tanvi
--- NOTE | 2016-07-15 17:44 | CP.PCM.PN ---
Subjective - Date & Time of Evaluation Date of Evaluation: 07/15/16 Time of Evaluation: 11:05 - Subjective Subjective: Comfortable in bed, less pain in the foot, afebrile overnight, no nausea, no diarrhea. Objective - Vital Signs/Intake and Output Vital Signs (last 24 hours): Temp Pulse Resp BP Pulse Ox 98 F 69 14 153/76 H 95 07/15/16 11:27 07/15/16 11:27 07/15/16 11:27 07/15/16 11:27 07/15/16 11:27 Intake and Output: 07/15/16 07/15/16 06:59 18:59 Intake Total 600 675 Output Total 2000 Balance -1400 675 - Medications Medications: Current Medications Acetaminophen (Tylenol 325mg Tab) 650 mg PO Q6H PRN PRN Reason: Pain, moderate (4-7) Last Admin: 07/12/16 13:16 Dose: 650 mg Acetaminophen (Tylenol 325mg Tab) 650 mg PO Q4H PRN PRN Reason: Pain, Mild (1-3) Docusate Sodium (Colace) 100 mg PO TID [facility] Last Admin: 07/15/16 16:50 Dose: 100 mg Piperacillin Sod/Tazobactam Sod (Zosyn 3.375 In Ns 100ml) 100 mls @ 200 mls/hr IVPB Q6 [facility] PRN Reason: Protocol Stop: 07/19/16 00:01 Last Admin: 07/15/16 13:06 Dose: 200 mls/hr Insulin Human Regular (Humulin R Med) 0 units SC ACHS [facility] PRN Reason: Protocol Last Admin: 07/15/16 16:50 Dose: 5 units Metformin HCl (Glucophage) 500 mg PO BID [facility] Last Admin: 07/15/16 16:50 Dose: 500 mg Oxycodone HCl (Oxycodone Immediate Release Tab) 15 mg PO Q6H PRN PRN Reason: Pain, severe (8-10) Oxycodone/Acetaminophen (Percocet 5/325 Mg Tab) 1 tab PO Q4H PRN PRN Reason: Pain, moderate (4-7) Stop: 07/18/16 10:34 Last Admin: 07/15/16 11:52 Dose: 1 tab Oxycodone/Acetaminophen (Percocet 5/325 Mg Tab) 2 tab PO Q4H PRN PRN Reason: Pain, severe (8-10) Stop: 07/18/16 10:34 - Labs Labs: 07/15/16 07:30 07/15/16 07:30 PT 11.8 Seconds (9.9-11.8) 07/11/16 16:10 INR 1.09 (0.93-1.08) H 07/11/16 16:10 APTT 32.5 Seconds (23.7-30.8) H 07/11/16 16:10 - Constitutional Appears: Non-toxic, No Acute Distress - Head Exam Head Exam: NORMAL INSPECTION - ENT Exam ENT Exam: Mucous Membranes Moist - Neck Exam Neck Exam: absent: Lymphadenopathy, Meningismus - Respiratory Exam Respiratory Exam: Decreased Breath Sounds - Cardiovascular Exam Cardiovascular Exam: +S1, +S2 - GI/Abdominal Exam GI & Abdominal Exam: Soft. absent: Tenderness - Extremities Exam Additional comments: left foot with dry dressings in place Assessment and Plan - Assessment and Plan (Free Text) Plan: Assessment Sepsis secondary to Group B strep bacteremia, probably secondary to left foot skin and skin structure infection (especially the hallux), suspect osteomyelitis of the left hallux S/P surgery POD #2 DM S/P cholecystectomy Plan continue Zosyn pending identification and sensitivities of the gram positive cocci in the wound taken 2016 (initial wound cx on 07/11/2016 showing group B strep); repeat blood cx negative; follow up 2D echo results Will continue to monitor clinically
[2016-07-16] MEDS: Insulin Reg-MEDIUM-Coverage SC SCH ×3 (08:06→17:32)
[2016-07-16] MEDS: Piperacillin/Tazobact 3.375 gm 100 ML IVPB SCH (14:01)
[2016-07-16 16:18] VITALS: BP 149/83; PULSE 72; RESP 18; TEMP 97.8; O2SAT 93
--- NOTE | 2016-07-16 17:42 | CP.PCM.PN ---
<Neeta Shaffer - Last Filed: 07/16/16 17:38> Subjective - Date & Time of Evaluation Date of Evaluation: 07/16/16 Time of Evaluation: 10:55 - Subjective Subjective: 65 year old male patient 1 day s/p Left foot Incision and drainage with resection of the Left 1st metatarsal head was seen at bedside this morning. Initially, patient had Left hallux amputation on 07/13/16. Patient was resting comfortably in bed with no acute overnight distress. patient denies of any pain to the amputation site. Dressing to Left foot remains clean, dry and intact. Patient denies of any N/V/F/C or SOB today Objective - Vital Signs/Intake and Output Vital Signs (last 24 hours): Temp Pulse Resp BP Pulse Ox 97.8 F 72 18 149/83 93 L 07/16/16 16:00 07/16/16 16:00 07/16/16 16:00 07/16/16 16:00 07/16/16 16:00 Intake and Output: 07/16/16 07/16/16 06:59 18:59 Intake Total 720 Output Total 600 Balance 120 - Medications Medications: Current Medications Acetaminophen (Tylenol 325mg Tab) 650 mg PO Q6H PRN PRN Reason: Pain, moderate (4-7) Last Admin: 07/12/16 13:16 Dose: 650 mg Acetaminophen (Tylenol 325mg Tab) 650 mg PO Q4H PRN PRN Reason: Pain, Mild (1-3) Docusate Sodium (Colace) 100 mg PO TID [facility] Last Admin: 07/16/16 09:54 Dose: 100 mg Ceftriaxone Sodium (Rocephin 2 Gm Ivpb) 100 mls @ 100 mls/hr IVPB DAILY [facility] PRN Reason: Protocol Stop: 08/15/16 05:00 Insulin Human Regular (Humulin R Med) 0 units SC ACHS [facility] PRN Reason: Protocol Last Admin: 07/16/16 14:00 Dose: 7 units Metformin HCl (Glucophage) 500 mg PO BID [facility] Last Admin: 07/16/16 09:53 Dose: 500 mg Oxycodone/Acetaminophen (Percocet 5/325 Mg Tab) 1 tab PO Q4H PRN PRN Reason: Pain, moderate (4-7) Stop: 07/18/16 10:34 Last Admin: 07/15/16 11:52 Dose: 1 tab Oxycodone/Acetaminophen (Percocet 5/325 Mg Tab) 2 tab PO Q4H PRN PRN Reason: Pain, severe (8-10) Stop: 07/18/16 10:34 - Labs Labs: 07/15/16 07:30 07/15/16 07:30 PT 11.8 Seconds (9.9-11.8) 07/11/16 16:10 INR 1.09 (0.93-1.08) H 07/11/16 16:10 APTT 32.5 Seconds (23.7-30.8) H 07/11/16 16:10 - Constitutional Appears: Well, Non-toxic, No Acute Distress - Extremities Exam Additional comments: Left lower extremity exam DERM: Surgical incision site appears well coapted with all sutures intact. No maceration noted to surgical site. Drain is still intact in the foot. No purulent drainage is noted. No mal-odor is noted. VASC: Mild erythema is noted around the incision site as well as diffusely over the dorsum of Left foot. Palpable DP and PT noted to bilateral feet 2/4, SHEETER OPERATOR less than 3 seconds noted to all digits ORTHO: No pain is induced to Left foot. Passive ankle ROM is within normal range , decreased ROM to Left hallux NEURO: Protective sensation diminished - Neurological Exam Neurological Exam: Alert, Awake, Oriented x3 - Psychiatric Exam Psychiatric exam: Normal Affect, Normal Mood - Skin Skin Exam: Normal Color, Warm Assessment and Plan - Assessment and Plan (Free Text) Assessment: 65 year old male patient 1 day s/p Left foot Incision and drainage with resection of the Left 1st metatarsal head (Previous hallux amputation on 07/13/16) Plan: Patient was seen, evaluated and treated with all questions and concerns addressed labs and vitals reviewed rounded with attending Dr. Marques Drain tube was left intact to left foot; mild drainage is noted from the previous dressing Left foot dressed with [facility] will continue to follow in-house <Tito Marques - Last Filed: 07/17/16 08:20> Objective - Vital Signs/Intake and Output Vital Signs (last 24 hours): Temp Pulse Resp BP Pulse Ox 97.8 F 72 18 149/83 93 L 07/16/16 16:00 07/16/16 16:00 07/16/16 16:00 07/16/16 16:00 07/16/16 16:00 - Labs Labs: 07/15/16 07:30 07/15/16 07:30 PT 11.8 Seconds (9.9-11.8) 07/11/16 16:10 INR 1.09 (0.93-1.08) H 07/11/16 16:10 APTT 32.5 Seconds (23.7-30.8) H 07/11/16 16:10 Attending/Attestation - Attestation I have personally seen and examined this patient.: Yes I have fully participated in the care of the patient.: Yes I have reviewed all pertinent clinical information, including history, physical exam and plan: Yes
--- NOTE | 2016-07-16 22:07 | DS ---
HOSPITAL COURSE: The patient is a 65-year-old male with a history of type 2 diabetes mellitus, admit dimitrios through the Emergency Room on 07/11/2016 with gangrene of the left great toe and cellulitis of th e left lower extremity. The patient was started on IV antibiotics and seen in consultation by orthop edic surgery, Dr. Gray and podiatry, Drs. Faria and Shelli. The patient underwent amputatio n of the left great toe on 07/13/2016 and revision surgery on 07/14/2016 without complications and is now medically stable for discharge to subacute care unit for further wound care and IV antibiotics. PHYSICAL EXAMINATION: VITAL SIGNS: Blood pressure 153/84, temperature 97.9, pulse 66, respiratory rate 16. LUNGS: Clear. HEART: Regular rate and rhythm. ABDOMEN: Soft, nontender, bowel sounds are normoactive. EXTREMITIES: Wound dressing on the left leg is intact. NEUROLOGIC: The patient is awake and oriented x 3 without focal sensory or motor deficits. SKIN: Warm and dry. IMPRESSION: 1. Gangrene of the left great toe, status post amputation. 2. Cellulitis of left leg, improved. 3. Type 2 diabetes mellitus with diabetic neuropathy. 4. Hypertension. 5. Hypercholesterolemia. PLAN: The patient will be discharged to [facility] for subacute rehab on the following medications: Rocephin 2 grams IV q. 24 hours, metformin 500 mg p.o. twice daily, regular insulin cove rage and Colace 100 mg 3 times daily. He will be maintained on a heart healthy diet. He will be fol lowed at the rehab facility by Dr. Marques for continued wound care and monitoring postoperatively. Raulito Crawford JD, MD cc: [id number] TT: 07/16/2016 22:07:22 [email or web address]
--- NOTE | 2016-07-17 21:58 | OP ---
PROCEDURE DATE: 07/15/2016 SURGEON: Dr. Marques. EVENT ATTENDANT: Dr. Chiquis Shaffer. SCHEDULE ANNOUNCER: Dr. Scott. ANESTHESIA: IV sedation with local. PREOPERATIVE DIAGNOSES: Left foot abscess and osteomyelitis to the head of the first metatarsal. POSTOPERATIVE DIAGNOSES: Left foot abscess and osteomyelitis to the head of the first metatarsal. PROCEDURE PERFORMED: 1. Partial ostectomy of left first metatarsal head. 2. Left foot incision and drainage. INDICATIONS: The patient is a 65-year-old male patient with the above diagnoses. The patient has ex hausted all conservative treatment at this time and now requires surgical intervention. The patient signed the consent after careful explanation of risks, benefits, complication and alternatives for lemus rgical procedure. No guarantees were given nor implied. PREPARATION: The patient was brought to the operating room table and placed on the operating room ta ble in supine position. Timeout was performed for identification of the correct patient and procedur e. After induction of IV sedation, the patient received a total of 14 mL of 1:1 mixture of 1% lidoca ine plain and 0.5% Marcaine plain in a local type fashion to the left ankle. Once local anesthesia w as achieved, the left foot and ankle was then prepped and draped in normal sterile manner. PROCEDURE #1: Attention was drawn to the left hallux amputation site where a head of the first metat arsal bone is exposed from the circumferential incision site made from the previous amputation of lef t hallux on 07/13/2016. Attention was then directed to the left first metatarsal head. Cartilage of first metatarsal head was unhealthy. Using a fresh #15 blade, all the ligamentous attachments were freed from the head of the metatarsal. Utilizing sagittal bone saw, the distal 1/3 of the head of th e first metatarsal bone was resected. The specimen was then passed from the operative field and sent to pathology. PROCEDURE #2: Attention was then directed to the circumferential incision site of the left hallux. This incision site was then extended 3 cm approximately between the first and second metatarsal bones . Using a #15 blade, all necrotic and nonviable tissue was then excisionally debrided from the surgi roe site. The surgical site was then copiously flushed with normal sterile saline. At this time, th e subcutaneous tissue was reapproximated utilizing #3-0 Vicryl with a simple suture technique. Then, the skin layers were reapproximated and coapted using #4-0 nylon with horizontal mattress and simple suture techniques. Using a straight hemostat, a sterile [place] drain was inserted into the distal lateral end of the incision site. The left foot was then dressed with Adaptic, 4 x 4 gauze, Kerlix, and Coban. Immediate capillary refill time was noted to the surgical site and remaining digits. POSTOPERATIVE CONDITION: The patient tolerated the anesthesia and procedure well and was escorted to the recovery room with vital signs stable and neurovascular status intact to the left foot. The pat ient is admitted to med-surg for 24-hour observational watch. CHIQUIS SHAFFER DPM Tito Marques DPM cc: [id number] TT: 07/17/2016 21:57:46 [email or web address]
== END 2016-07-16 20:00 | DRG 616 ==
LOC: ED 14:33 → ERH 17:54 → 5RSO 19:45
PROVIDERS: ADMIT Internal Medicine; ATTEND Internal Medicine
PROC: 0Y6Q0Z1 Detachment at Left 1st Toe, High, Open Approach (ICD-10-PCS; principal; 2016-07-13 15:30)
PROC: 0QTP0ZZ Resection of Left Metatarsal, Open Approach (ICD-10-PCS; 2016-07-15)
DX: E11.69 Type 2 diabetes mellitus with other specified complication (principal); M86.172 Other acute osteomyelitis, left ankle and foot; E11.52 Type 2 diabetes mellitus with diabetic peripheral angiopathy with gangrene; L03.116 Cellulitis of left lower limb; L02.612 Cutaneous abscess of left foot; A40.1 Sepsis due to streptococcus, group B; E11.621 Type 2 diabetes mellitus with foot ulcer; E11.40 Type 2 diabetes mellitus with diabetic neuropathy, unspecified; E11.42 Type 2 diabetes mellitus with diabetic polyneuropathy; I10 Essential (primary) hypertension; E78.00 Pure hypercholesterolemia, unspecified; L97.529 Non-pressure chronic ulcer of other part of left foot with unspecified severity; Z91.19 Patient's noncompliance with other medical treatment and regimen; Z79.4 Long term (current) use of insulin; Z90.49 Acquired absence of other specified parts of digestive tract

== ENCOUNTER 2018-02-02 08:41 | Emergency (ER) | payer MEDICARE ==
[2018-02-02 08:42] VITALS: BMI 25.5
[2018-02-02] MEDS ORDERED: Lidocaine 5% Patch TD ONE (09:08)
--- NOTE | 2018-02-02 09:15 | ED PDOC ---
Arrival/HPI - General Chief Complaint: Back Pain Time Seen by Provider: 02/02/18 08:49 Historian: Patient - History of Present Illness Narrative History of Present Illness (Text): 02/02/18 09:10 67 year old male, whose past medical history includes diabetes, diabetic neuropathy, chronic back pain, and cholecystectomy, presents to the emergency department complaining of left-sided back pain s/p falling back down the stairs yesterday. Patient describes the pain as a stinging sensation, but denies any radiation. Patient states he was walking down the stairs when he lost his balance and fell back injuring his back. Patient used [place] and Icy hot with no relief. Patient reports there's pain with any form of movement, but is able to ambulate without any difficulty. Patient denies any fever, chills, chest pain, shortness of breath, nausea, vomiting, diarrhea, urinary symptoms, neck pain, headache, dizziness, or any other complaints. PMD: Dr. Raulito Crawford Time/Duration: 24 hours Symptom Onset: Sudden Symptom Course: Unchanged Activities at Onset: Light Context: Walking Past Medical History - Provider Review Nursing Documentation Reviewed: Yes - Infectious Disease Hx of Infectious Diseases: None - Cardiac Hx Cardiac Disorders: No - Pulmonary Hx Respiratory Disorders: No - Neurological Hx Neurological Disorder: No - HEENT Hx HEENT Disorder: No - Renal Hx Renal Disorder: No - Endocrine/Metabolic Hx Endocrine Disorders: Yes Other/Comment: uncontrolled DM - Hematological/Oncological Hx Blood Transfusions: No Hx Blood Transfusion Reaction: No - Integumentary Hx Dermatological Disorder: No - Musculoskeletal/Rheumatological Hx Musculoskeletal Disorders: No Hx Falls: No - Gastrointestinal Hx Gastrointestinal Disorders: Yes Other/Comment: cholecystectomy - Genitourinary/Gynecological Hx Genitourinary Disorders: No - Psychiatric Hx Psychophysiologic Disorder: No Hx Substance Use: No - Surgical History Hx Cholecystectomy: Yes - Anesthesia Hx Anesthesia Reactions: No Hx Malignant Hyperthermia: No Family/Social History - Physician Review Nursing Documentation Reviewed: Yes Family/Social History: No Known Family HX Smoking Status: Never Smoked Hx Alcohol Use: Yes Hx Substance Use: No Allergies/Home Meds Allergies/Adverse Reactions: Allergies No Known Allergies Allergy (Verified 07/11/16 15:00) Home Medications: Home Meds Medication Instructions Recorded Confirmed cefTRIAXone [Rocephin] 2 gm IVPB Q24H 07/16/16 07/16/16 Review of Systems - Physician Review All systems were reviewed & negative as marked: Yes - Review of Systems Constitutional: absent: Fevers, Other (Chills) Respiratory: absent: SOB Cardiovascular: absent: Chest Pain Gastrointestinal: absent: Diarrhea, Nausea, Vomiting Genitourinary Male: absent: Dysuria, Frequency, Hematuria Musculoskeletal: Back Pain. absent: Neck Pain Neurological: absent: Headache, Dizziness, Gait Changes Physical Exam Vital Signs Reviewed: Yes Vital Signs Temp Pulse Resp BP Pulse Ox 02/02/18 08:52 97.6 F 68 16 171/81 H 100 Temperature: Afebrile Blood Pressure: Hypertensive Pulse: Regular Respiratory Rate: Normal Appearance: Positive for: Well-Appearing, Non-Toxic, Comfortable Pain Distress: None Mental Status: Positive for: Alert and Oriented X 3 - Systems Exam Head: Present: Atraumatic, Normocephalic Pupils: Present: PERRL Extroacular Muscles: Present: EOMI Conjunctiva: Present: Normal Mouth: Present: Moist Mucous Membranes Neck: Present: Normal Range of Motion Respiratory/Chest: Present: Clear to Auscultation, Good Air Exchange. No: Respiratory Distress, Accessory Muscle Use Cardiovascular: Present: Regular Rate and Rhythm, Normal S1, S2. No: Murmurs Abdomen: No: Tenderness, Distention, Peritoneal Signs Back: Present: Paraspinal Tenderness (to the left side of the lumbar region. Pain with movement), Other (Ecchymosis noted to the lumbar sacral region ) Upper Extremity: Present: Normal Inspection. No: Cyanosis, Edema Lower Extremity: Present: Normal Inspection. No: Edema Neurological: Present: GCS=15, CN II-XII Intact, Speech Normal Skin: Present: Warm, Dry, Normal Color. No: Rashes Psychiatric: Present: Alert, Oriented x 3, Normal Insight, Normal Concentration Medical Decision Making ED Course and Treatment: 02/02/18 09:10 Impression: 67 year old male presents complaining of left-sided back pain s/p losing his balance and falling back down the stairs yesterday. Differential Diagnosis included but are not limited to: Lumbar Stenosis Herniated disc Compression fracture Plan: -- CT Cervical Spine w/o contrast -- Head w/o contrast -- Lumabr spine w/o contrast -- Lidoderm, Toradol, Valium -- Reassess and disposition Progress Notes: 02/02/18 11:50 On re-evaluation, patient feels better and is in no acute distress. I have discussed the results and plan with the patient, who expresses understanding. Patient in agreement with plan to be discharged home. Patient is stable for discharge. Patient was instructed to follow up with physician or return if symptoms worsen or new concerning symptoms arise. - RAD Interpretation Narrative RAD Interpretations (Text): PROCEDURE: CT Head w/o contrast BY: Bibiana Whittington MD DATE: 02/02/18 1059 IMPRESSION: No acute intracranial abnormality PROCEDURE: Cervical Spine w/o Contrast BY: Bibiana Whittington MD DATE: 02/02/18 1102 IMPRESSION: No acute fracture or traumatic anterior listhesis PROCEDURE:CT [place] Spine w/o Contrast BY: Bibiana Whittington MD DATE: 02/02/18 1117 IMPRESSION: No acute fracture, spondylolsis or spondylolisthesis Radiology Orders: 02/02/18 09:08 LUMBAR SPINE W/O CONTRAST [CT] Stat 02/02/18 09:09 CERVICAL SPINE W/O CONTRAST [CT] Stat HEAD W/O CONTRAST [CT] Stat Stockroom Associate: Radiologist - Medication Orders Current Medication Orders: Lidocaine (Lidoderm) 1 ea TD ONCE ONE Stop: 02/02/18 09:09 Discontinued Medications Diazepam (Valium) 5 mg PO ONCE ONE; Protocol Stop: 02/02/18 09:09 Ketorolac Tromethamine (Toradol) 60 mg IM STAT STA Stop: 02/02/18 09:09 - Scribe Statement The provider has reviewed the documentation as recorded by the Vik Izaguirre Provider Scribe Attestation: All medical record entries made by the Vik were at my direction and personally dictated by me. I have reviewed the chart and agree that the record accurately reflects my personal performance of the history, physical exam, medical decision making, and the department course for this patient. I have also personally directed, reviewed, and agree with the discharge instructions and disposition. Disposition/Present on Arrival - Present on Arrival Any Indicators Present on Arrival: Yes History of DVT/PE: No History of Uncontrolled Diabetes: Yes Urinary Catheter: No History of Decub. Ulcer: No History Surgical Site Infection Following: None - Disposition Have Diagnosis and Disposition been Completed?: Yes Diagnosis: Back pain Disposition: HOME/ ROUTINE Disposition Time: 11:53 Patient Plan: Discharge Condition: IMPROVED Discharge Instructions (ExitCare): Upper Back Pain (DC) Additional Instructions: All medical record entries made by the Scribe were at my direction and personally dictated by me. I have reviewed the chart and agree that the record accurately reflects my personal performance of the history, physical exam, medical decision making, and the department course for this patient. I have also personally directed, reviewed, and agree with the discharge instructions and disposition. Please do not operate any machinery for FOUR hours after using Flexaril Follow up with your PCP in 1-2 days Prescriptions: Cyclobenzaprine [Flexeril] 5 mg PO PRN PRN #10 tab PRN Reason: Muscle Spasm Lidocaine 5% [Lidoderm] 1 ea TD Q12H #5 patch Referrals: [facility] at [facility] [Outside] - Follow up with primary Eleonora Mancilla MD [Medical Doctor] - Follow up with primary Forms: Q.ME (Mongolian)
--- NOTE | 2018-02-02 11:02 | CT ---
Date of service: 02/02/2018 PROCEDURE: CT HEAD WITHOUT CONTRAST. HISTORY: fall COMPARISON: None available. TECHNIQUE: Axial computed tomography images were obtained through the head/brain without intravenous contrast. Radiation dose: Total exam DLP = 881.49 mGy-cm. This CT exam was performed using one or more of the following dose reduction techniques: Automated exposure control, adjustment of the mA and/or kV according to patient size, and/or use of iterative reconstruction technique. FINDINGS: HEMORRHAGE: No intracranial hemorrhage. BRAIN: There is an old lacunar infarction in the left caudate head. There is an old infarction versus prominent perivascular space in the left basal ganglia there is no mass, mass effect or abnormal extra-axial fluid collection. There is no territorial infarction. The midline sagittal structures are normal. VENTRICLES: There is mild age-related global parenchymal volume loss and proportionate enlargement of the ventricles and cortical sulci. CALVARIUM: There is no calvarial fracture or extracranial soft tissue swelling. PARANASAL SINUSES: There is a retention cyst/polyp in the right maxillary sinus and mild mucosal thickening in the left maxillary sinus. The remaining included paranasal sinuses are clear. MASTOID AIR CELLS: Predominantly clear. OTHER FINDINGS: The globes are symmetric and normal in appearance. IMPRESSION: No acute intracranial abnormality.
--- NOTE | 2018-02-02 11:06 | CT ---
Date of service: 02/02/2018 PROCEDURE: CT Cervical Spine without contrast HISTORY: fall COMPARISON: None available. TECHNIQUE: Axial computed tomography images were obtained of the cervical spine without the use of intravenous contrast. Coronal and sagittal reformatted images were created and reviewed. Radiation dose: Total exam DLP = 303.44 mGy-cm. This CT exam was performed using one or more of the following dose reduction techniques: Automated exposure control, adjustment of the mA and/or kV according to patient size, and/or use of iterative reconstruction technique. FINDINGS: VERTEBRAE: There is dextroscoliosis in the cervical spine. There is straightening of the cervical spine with loss normal cervical lordosis vertebral alignment is normal. There is no acute fracture or traumatic anterior listhesis. The craniocervical junction is normal. There is mild degenerative osteoarthrosis at the atlantoaxial joint. DISCS/SPINAL CANAL/NEURAL FORAMINA: There is multilevel degenerative disc disease with anterior and posterior longitudinal ligament ossification from C4-C6. There is desiccation of the C5-6 disc. No spinal canal stenosis. PARASPINAL SOFT TISSUES: Paraspinous soft tissues are normal OTHER FINDINGS: No prevertebral soft tissue thickening. No apical pneumothorax. There is a heterogeneous apparent nodular thyroid gland. IMPRESSION: No acute fracture or traumatic anterior listhesis
[2018-02-02 11:12] VITALS: RESP 17
--- NOTE | 2018-02-02 11:20 | CT ---
Date of service: 02/02/2018 PROCEDURE: CT Lumbar Spine without contrast HISTORY: s/p fall lower back pain COMPARISON: None available. TECHNIQUE: Axial computed tomography images were obtained of the lumbar spine without the use of intravenous contrast. Coronal and sagittal reformatted images were created and reviewed. Radiation dose: Total exam DLP = 1282.22 mGy-cm. This CT exam was performed using one or more of the following dose reduction techniques: Automated exposure control, adjustment of the mA and/or kV according to patient size, and/or use of iterative reconstruction technique. FINDINGS: VERTEBRAE: There is diffuse bone demineralization. There is no acute fracture or bone destruction. Bone alignment is normal. There is normal lumbar lordosis. There is a focal lesion in the right superior L1 vertebral body with prominent secondary trabeculations likely a benign hemangioma. DISCS/SPINAL CANAL/NEURAL FORAMINA: There is mild multilevel degenerative disc disease due to combination of minimal posterior disc bulges, and multilevel facet arthropathy more conspicuous in the lower lumbar spine without spinal canal stenosis. PARASPINAL SOFT TISSUES: Paraspinous soft tissues are normal. There is a small nonobstructing stone in the lower pole of the right kidney. Imaged portion of the retroperitoneum is otherwise within limits. OTHER FINDINGS: None. IMPRESSION: No acute fracture, spondylolysis or spondylolisthesis.
[2018-02-02 11:26] LABS: BASO # 0.03 K/mm3 (0.0-2.0); BASO % 0.5 % (0.0-3.0); EOS # 0.1 (0.0-0.7); EOS % 1.3 % (1.5-5.0); GRAN # 3.64 (1.4-6.5); GRAN % 58.8 % (50.0-68.0); LYMPH # 1.9 (1.2-3.4); LYMPH % 31.3 % (22.0-35.0); MEAN CELL VOLUME 93.1 fl (80.0-105.0); MEAN CORPUSCULAR HEMOGLOBIN 32.4 pg (25.0-35.0); MEAN CORPUSCULAR HGB CONC 34.8 g/dl (31.0-37.0); MEAN PLATELET VOLUME 10.1 fl (7.0-11.0); MONO # 0.5 (0.1-0.6); MONO % 8.1 % (1.0-6.0); RBC 4.32 10^6/uL (3.5-6.1); RED CELL DISTRIBUTION WIDTH 13.7 % (11.5-14.5); WHITE BLOOD COUNT 6.2 10^3/ul (4.5-11.0)
[2018-02-02 11:34] LABS: ALB/GLOB RATIO 1.1 (1.1-1.8); ALBUMIN 4.1 g/dL (3.0-4.8); ALT/SGPT 35 U/L (7-56); AST/SGOT 32 U/L (17-59); BLOOD UREA NITROGEN 12 mg/dL (7-21); CALCIUM 9.2 mg/dL (8.4-10.5); GFR NON-AFRICAN AMERICAN > 60
[2018-02-02 12:19] VITALS: BP 141/72; PULSE 80; TEMP 98; O2SAT 98
== END 2018-02-02 12:18 | disposition home or self-care (01) ==
LOC: ED 08:41
DX: M54.9 Dorsalgia, unspecified (principal); E11.40 Type 2 diabetes mellitus with diabetic neuropathy, unspecified; Z90.49 Acquired absence of other specified parts of digestive tract
CPT/HCPCS: 70450; 72125; 72131; 80053; 85025; 96372; 99284; J1885